=== PATIENT | male | born 2000 | race Caucasian/White ===

== ENCOUNTER 2022-09-22 13:11 | Inpatient (IN) | payer BC, MEDICAID, SELFPAY ==
[2022-09-22 13:27] VITALS: BP 135/72; BP 158/82; PULSE 104; PULSE 93; RESP 18; O2SAT 100; BMI 22.1
--- NOTE | 2022-09-22 13:32 | PC.NURSE ---
Alert and oriented. Arrived from [facility] in [place] with SI. Patient reports the last few weeks have been difficult and he is struggling to completes chores around the house and ADL`s. Reports feeling depressed and anxious and has had many intrusive thoughts about ending his life. has thought about driving his car into a pool but would not actually do it. States that he was in [facility] about 2 months ago and declined any medication. takes no medications. Reports the last few weeks have been hard because his Mom has breast cancer and his parents went on vacation last week and he felt alone. Reports parents have since returned from vacation. Denies etoh or drugs use, does smoke nicotine occasionally.
--- NOTE | 2022-09-22 13:44 | ED_ITS ---
HPI - Psych General Chief Complaint: Psychiatric Symptoms Stated Complaint: SI Time Seen by Provider: 09/22/22 13:35 Source: patient Mode of arrival: EMS Limitations: no limitations History of Present Illness HPI Narrative: Patient comes to the emergency room complaining of suicidal ideation. Patient states that he has history of bipolar depression, patient has had intrusive thoughts of driving his car into the swimming pool. Patient states that he has phobia of taking psych meds and therefore has not been taking his prescribed medications for several months. Patient complaining of severe anxiety as well. However, declining any medications due to his phobia. Patient states that although he has been having intrusive thoughts, he would not hurt himself, but intrusive thoughts are bothering him quite a bit. Related Data Allergies Allergy/AdvReac Type Severity Reaction Status Date / Time No Known Allergies Allergy Verified 09/22/22 13:42 Review of Systems Review of Systems: Constitutional : No Weight loss, No Fever, No Chills, No Night Sweats, No Fatigue, No Malaise ENT/Mouth : No Hearing loss, No Ear Pain, No Nasal Congestion, No Sinus Pain, No Hoarseness, No sore throat, No Rhinorrhea, No Swallowing Difficulty Eyes: No Eye Pain, No Swelling, No Redness, No Foreign Body, No Discharge, No Vision Changes Cardiovascular : No Chest Pain, No SOB, No Dyspnea on Exertion, No Orthopnea, No Edema, No Palpitations Respiratory : No Cough, No Sputum, No Wheezing, No Smoke Exposure, No Dyspnea Gastrointestinal : No Nausea, No Vomiting, No Diarrhea, No Constipation, No abdominal Pain, No Hematochezia, No Melena Genitourinary : no irregular bleeding, No Dysuria, No Urinary Frequency, No Hematuria, No Urinary Incontinence, No Urgency, No Flank Pain, No Urinary Flow Changes, No Hesitancy Musculoskeletal : No joint pain, No Myalgias, No Joint Swelling Skin : No Skin Lesions, No rash Neuro : No Weakness, No Numbness, No Paresthesias, No Loss of Consciousness, No Dizziness, No Headache Psych : No Anxiety/Panic, No Depression, complaining of suicidal intrusive thoughts without intention, no HI, complaining of phobia tube segments Heme/Lymph: No Bruising, No Bleeding,No Lymphadenopathy Endocrine : No Polyuria, No Polydipsia, No Temperature Intolerance [facility] Past Medical History Medical History (Updated 09/22/22 @ 13:48 by Nancy Gregg MD) Bipolar depression Physical Exam Vital Signs: Vital Signs: Last Vital Signs Pulse 93 09/22/22 13:27 Resp 18 09/22/22 13:27 BP 135/72 09/22/22 13:27 Pulse Ox 100 09/22/22 13:27 O2 Del Method Room Air 09/22/22 13:27 BMI result Body Mass Index 22.1 Const: Other: Appearance: Alert. Oriented X3. No acute distress. Eyes: Pupils equal, round and reactive to light. ENT: Pharynx normal. Neck: Normal inspection. Neck supple. No lymph nodes noted. No crepitus CVS: Normal heart rate and rhythm. Pulses normal. Normal S1 and S2 Respiratory: No respiratory distress. Breath sounds normal. No Wheezing. No rales Abdomen: Soft and nontender. No rigidity. No distention. Skin: Skin warm and dry. Normal skin color. Normal skin turgor. Extremities: No lower extremity edema. No Lacerations. No Rash Neuro: Oriented X 3. No motor deficit. No sensory deficit. Moving all extremities. No slurred speech. CN 2 through 12 grossly intact Psych: calm, cooperative, anxious, a bit teary Course Course Course Narrative: -of patient's labs are pending -patient declined Ativan due to his fobia -care team consult pending -physician observation started that 13:45 Discharge Plan Discharge Clinical Impression: Suicidal ideation Patient Disposition: Still a Patient Interventions: [place]-Suicide Risk Severity Scale Last Done: 09/22/22 13:42
[2022-09-22 14:14] LABS: MANUAL DIFF FLAG NO
[2022-09-22 14:16] LABS: Appearance Urine Clear; Color Urine Yellow; Glucose Urine UA Negative (Negative); Leukocyte Esterase Urine Negative (Negative); Nitrite Urine Negative (Negative); Specific Gravity - Urine <= 1.005 (1.005-1.025); Urine Blood Negative (Negative); Urine Ketones Negative (Negative); Urine Protein Negative (Neg-Trace)
[2022-09-22 14:17] LABS: Basophils Absolute Auto 0.1 X10*3/uL (0.0-0.2); Basophils Percent Auto 0.9 % (0-2); Eosinophils Absolute Auto 0.1 X10*3/uL (0.0-0.4); Eosinophils Percent Auto 0.8 % (0-4); Hematocrit 44.2 % (42.0-52.0); Hemoglobin 15.7 g/dl (14.0-18.0); Imm Gran Abs Auto 0.03 X10*3/uL (0.00-0.03); Imm Gran Pct Auto 0.5 % (0.0-0.4); Lymphocytes Absolute Auto 0.9 X10*3/uL (1.2-4.9); Lymphocytes Percent Auto 13.7 % (20-40); Mean Corpuscular HGB Conc 35.5 g/dl (31.0-36.0); Mean Corpuscular Hemoglobin 31.5 pg (27.0-33.0); Mean Corpuscular Volume 88.6 fL (80.0-98.0); Mean Platelet Volume 10.6 fL (9.4-12.4); Monocytes Absolute Auto 0.4 X10*3/uL (0.1-1.2); Monocytes Percent Auto 6.2 % (2-11); Neutrophils Absolute Auto 5.2 x10*3/uL (2.0-8.3); Neutrophils Percent Auto 77.9 % (45-73); Platelet Count 289 X10*3/uL (160-400); Red Blood Count 4.99 X10*6/uL (4.60-5.80); Red Cell Distribution Width 11.3 % (11.0-16.0); White Blood Count 6.6 X10*3/uL (4.8-10.8)
[2022-09-22 14:19] LABS: Bacteria Urine None Seen (None Seen); Hyaline Casts Urine 0-2 /LPF (0-2); RBC Urine 0-2 /HPF (0-2); Squamous Epithelial Cell Urine 0-2 /HPF (0-2); WBC Urine 0-5 /HPF (0-5)
--- NOTE | 2022-09-22 14:21 | MHC.CARE ---
CARE Team spoke with [facility]- Pt was assessed in the community and a bedsearch
[2022-09-22 14:43] LABS: Amphetamine Screen Urine Not Detected (Not Detect); Barbiturates, Urine Not Detected (Not Detect); Benzodiazepines Screen Urine Not Detected (Not Detect); Cannabinoid Screen Urine Not Detected (Not Detect); Cocaine Screen Urine Not Detected (Not Detect); Fentanyl, urine Not Detected (Not Detect); Opiate Screen Urine Not Detected (Not Detect); Phencyclidine Screen Urine Not Detected (Not Detect)
[2022-09-22 14:55] LABS: Alanine Aminotransferase 10 U/L (0-40); Albumin Level 4.7 g/dL (3.5-5.0); Alkaline Phosphatase 51 U/L (39-117); Anion Gap 12 (12-20); Aspartate Amino Transferase 12 U/L (5-37); Bilirubin Direct 0.2 mg/dL (0.0-0.5); Bilirubin Total 0.4 mg/dL (0.0-1.0); Blood Urea Nitrogen 8 mg/dL (9-16); Calcium 9.8 mg/dL (8.4-10.2); Carbon Dioxide 28 mmol/L (22-29); Chloride 106 mmol/L (96-108); Creatinine Clr Calc Pharmacy 134.8; Estimated Glomerular Filt Rate > 60; Ethanol < 10 mg/dL; Glucose Random 106 mg/dL (60-115); Potassium 3.8 mmol/L (3.3-5.1); Sodium 142 mmol/L (135-145); Total Protein 7.3 g/dL (6.5-8.0)
[2022-09-22 15:10] LABS: COVID-19 Test Negative (Negative); IDNOW Serial# 08D9AD1C
--- NOTE | 2022-09-22 15:43 | PC.NURSE ---
Patient weepy, signed EV, denies any pain or discomfort
--- NOTE | 2022-09-22 17:40 | PC.NURSE ---
Patient`s father called and asked if Zane would be okay for a visit. Zane when asked if parents could visit became upset, crying, stating No no no no visitors rights now. Parents aware, will call back in the morning
--- NOTE | 2022-09-22 18:13 | PC.NURSE ---
Patient stating he is a vegan- kitchen called, new tray to be sent
[2022-09-22 18:16] VITALS: BP 123/77; PULSE 57; RESP 18; TEMP 36.9; O2SAT 100
[2022-09-22 22:00] VITALS: BP 126/70; PULSE 64; RESP 17; TEMP 36.7; O2SAT 99
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
[2022-09-23 06:00] VITALS: BP 133/72; PULSE 61; RESP 16; TEMP 36.6; O2SAT 98
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
[2022-09-23] MEDS: ARIPiprazole 5 MG TABLET PO (15:54)
[2022-09-23 19:59] VITALS: BP 120/68; PULSE 59; TEMP 36.6
[2022-09-23] MEDS: Nicotine Polacrilex 2 MG GUM 4 MG BUCCAL (20:27)
[2022-09-24 08:10] VITALS: BP 122/78; PULSE 60; RESP 18; TEMP 36.3; O2SAT 99
[2022-09-24] MEDS: ARIPiprazole 5 MG TABLET PO (09:45)
[2022-09-24 18:00] VITALS: BP 120/68; PULSE 70; RESP 18; TEMP 36.7; O2SAT 97
--- NOTE | 2022-09-24 20:27 | P.PNPSI_ITS ---
Subjective Subjective Date of Service: 09/24/22 Reason For Visit: Mental Health Crisis Subjective Notes: Conditional Voluntary Interim History: Pt appears with brighter affect, non labile, less tearful. Pt reports they slept through the night. Pt denies SI. They report less intrusive thoughts of wanting to be . Pt reports they were very moved to see family day prior when they came to visit them. Per nursing, pt slept through the night. No behavioral concerns. Pt visible on the unit, social with select peers. Denies VH/AH. He is hesitant about taking both sertraline and abilify. Pt informed that he can try both and if sertraline makes him more agitated, or suspicious or paranoid to stop sertraline. Review of Systems Review of Systems Constitutional : No Weight loss, No Fever, No Chills, No Night Sweats, No Fatigue, No Malaise ENT/Mouth : No Hearing loss, No Ear Pain, No Nasal Congestion, No Sinus Pain, No Hoarseness, No sore throat, No Rhinorrhea, No Swallowing Difficulty Eyes: No Eye Pain, No Swelling, No Redness, No Foreign Body, No Discharge, No Vision Changes Cardiovascular : No Chest Pain, No SOB, No Dyspnea on Exertion, No Orthopnea, No Edema, No Palpitations Respiratory : No Cough, No Sputum, No Wheezing, No Smoke Exposure, No Dyspnea Gastrointestinal : No Nausea, No Vomiting, No Diarrhea, No Constipation, No abdominal Pain, No Hematochezia, No Melena Genitourinary : no irregular bleeding, No Dysuria, No Urinary Frequency, No Hematuria, No Urinary Incontinence, No Urgency, No Flank Pain, No Urinary Flow Changes, No Hesitancy Musculoskeletal : No joint pain, No Myalgias, No Joint Swelling Skin : No Skin Lesions, No rash Neuro : No Weakness, No Numbness, No Paresthesias, No Loss of Consciousness, No Dizziness, No Headache Psych : No Anxiety/Panic, No Depression, complaining of suicidal intrusive thoughts without intention, no HI, complaining of phobia tube segments Heme/Lymph: No Bruising, No Bleeding,No Lymphadenopathy Endocrine : No Polyuria, No Polydipsia, No Temperature Intolerance Mental Status Exam Mental Status Exam Narrative: Appearance: wearing casual clothing, hygiene is fair, in NAD Behavior: cooperative Psychomotor: no overt agitation or retardation noted Speech: clear, normal rate/rhythm, volume, spontaneous TP: mostly linear TC: feeling depressed, hopeless, unable to function Mood: depressed, lonely Affect: dysphoric at times, from tearful to calm Si: passive SI HI: none VH/AH: denies Delusions: may have some degree of suspiciousness, maybe less than before Insight/judgment: fair x 2. Memory/cog: alert, oriented x 3. Diagnostics Vital Signs (24Hr): Vital Signs - 24 hr 09/24/22 08:10 09/24/22 18:00 Temperature 97.3 F 98.1 F Pulse Rate 60 70 Respiratory Rate 18 18 Blood Pressure 122/78 120/68 Pulse Oximetry 99 97 Oxygen Delivery Method Room Air Room Air BMI result Body Mass Index 22.1 Labs 09/22/22 14:09 09/22/22 14:09 Medications Medications Current Medications Acetaminophen (Acetaminophen 325 Mg Tablet) 650 mg PO Q6H PRN PRN Reason: Headache/Pain Mild Scale (1-3) Al Hydroxide/Mg Hydroxide (Magnesium Hydrox/Alum Hydrox 30 Ml Oral.Susp) 30 ml PO Q6H PRN PRN Reason: Heartburn/Nausea Aripiprazole (Aripiprazole 5 Mg Tablet) 5 mg PO DAILY [facility] Last Admin: 09/24/22 09:45 Dose: 5 mg Hydroxyzine HCl (Hydroxyzine Hcl 25 Mg Tablet) 25 mg PO Q6H PRN PRN Reason: Anxiety Magnesium Hydroxide (Milk Of Magnesia 30 Ml Oral.Susp) 30 ml PO DAILY PRN PRN Reason: Constipation Nicotine Polacrilex (Nicotine Polacrilex 2 Mg Gum) 4 mg BUCCAL Q2H PRN PRN Reason: Nicotine Cravings Last Admin: 09/23/22 20:27 Dose: 4 mg Sertraline HCl (Sertraline Hcl 50 Mg Tablet) 50 mg PO DAILY [facility] Last Admin: 09/24/22 10:00 Dose: Not Given Trazodone HCl (Trazodone Hcl 50 Mg Tablet) 50 mg PO BEDTIME PRN PRN Reason: Insomnia Allergies Allergies Allergy/AdvReac Type Severity Reaction Status Date / Time No Known Allergies Allergy Verified 09/22/22 13:42 Assessment & Plan Assessment & Plan (1) MDD (major depressive disorder), recurrent, severe, with psychosis: Status: Acute Code(s): F33.3 - Major depressive disorder, recurrent, severe with psychotic symptoms Plan Ravin is a 22 year-old individual who prefers they/them pronouns. He has had two inpatient psychiatric admission this year for what appears to be depressed presentation with underlying psychosis (more so first admission than this). Pt presents as dysphoric at times tearful, others calm. They continues to report passive suicidal ideation and inability to function as they used to. In terms of diagnosis, I do not hear from family or pt clear hx of noe including increased energy, engaging in risky behaviors, decreased need for sleep, grandiose ideas. It appears that patient has had a significant decline in ability to function in the past 2 years with increase signs of psychosis. Within differential diagnosis, I would consider MDD with psychosis but will need to r/o schizophreniform disorder. We discussed risks, benefit and alternative treatment options. Pt agreed to start ability, continue sertraline. PLAN 1. Admit to M5, CV, 15 minutes checks for safety 2. Start abilify 5mg po daily, titrate as tolerated 3. Continue sertraline 50mg po daily 4. Aftercare planning, coordination of care with outpatient treaters and family. 09/24 continue treatment, plan to increase ability to 10mg po daily on Thursday. Consider step down to PHP. Reason for continued inpatient stay Substantial Risk for: inability to function Time Spent With Patient Time: Total time managing care of this patient today ____ minutes.
[2022-09-24] MEDS: Nicotine Polacrilex 2 MG GUM 4 MG BUCCAL (20:32)
[2022-09-25 07:00] VITALS: BMI 25.7
[2022-09-25 08:05] VITALS: BP 123/80; PULSE 61; RESP 18; TEMP 36.7; O2SAT 100
[2022-09-25] MEDS: ARIPiprazole 5 MG TABLET PO (08:40)
[2022-09-25 18:00] VITALS: BP 124/72; PULSE 64; RESP 18; TEMP 36.6; O2SAT 99
--- NOTE | 2022-09-25 19:59 | HO.PSYCHPN ---
Subjective Subjective Date of Service: 09/25/22 Reason For Visit: Mental Health Crisis Subjective Notes: Conditional Voluntary Interim History: Pt reports feeling much better. He reports less intrusive thoughts. He denies SI/HI. He reports he understands his family is not going to change but he is very happy to see them today. Pt has been visible on the unit, social with peers. No behavioral concerns. Medication Compliance: Yes Review of Systems Review of Systems Constitutional : No Weight loss, No Fever, No Chills, No Night Sweats, No Fatigue, No Malaise ENT/Mouth : No Hearing loss, No Ear Pain, No Nasal Congestion, No Sinus Pain, No Hoarseness, No sore throat, No Rhinorrhea, No Swallowing Difficulty Eyes: No Eye Pain, No Swelling, No Redness, No Foreign Body, No Discharge, No Vision Changes Cardiovascular : No Chest Pain, No SOB, No Dyspnea on Exertion, No Orthopnea, No Edema, No Palpitations Respiratory : No Cough, No Sputum, No Wheezing, No Smoke Exposure, No Dyspnea Gastrointestinal : No Nausea, No Vomiting, No Diarrhea, No Constipation, No abdominal Pain, No Hematochezia, No Melena Genitourinary : no irregular bleeding, No Dysuria, No Urinary Frequency, No Hematuria, No Urinary Incontinence, No Urgency, No Flank Pain, No Urinary Flow Changes, No Hesitancy Musculoskeletal : No joint pain, No Myalgias, No Joint Swelling Skin : No Skin Lesions, No rash Neuro : No Weakness, No Numbness, No Paresthesias, No Loss of Consciousness, No Dizziness, No Headache Psych : No Anxiety/Panic, No Depression, complaining of suicidal intrusive thoughts without intention, no HI, complaining of phobia tube segments Heme/Lymph: No Bruising, No Bleeding,No Lymphadenopathy Endocrine : No Polyuria, No Polydipsia, No Temperature Intolerance Mental Status Exam Mental Status Exam Narrative: Appearance: wearing casual clothing, hygiene is fair, in NAD Behavior: cooperative Psychomotor: no overt agitation or retardation noted Speech: clear, normal rate/rhythm, volume, spontaneous TP: mostly linear TC: feeling depressed, hopeless, unable to function Mood: depressed, lonely Affect: dysphoric at times, from tearful to calm Si: passive SI HI: none VH/AH: denies Delusions: may have some degree of suspiciousness, maybe less than before Insight/judgment: fair x 2. Memory/cog: alert, oriented x 3. Diagnostics Vital Signs (24Hr): Vital Signs - 24 hr 09/25/22 08:05 Temperature 98.1 F Pulse Rate 61 Respiratory Rate 18 Blood Pressure 123/80 Pulse Oximetry 100 Oxygen Delivery Method Room Air BMI result Body Mass Index 25.7 Labs 09/22/22 14:09 09/22/22 14:09 Medications Medications Current Medications Acetaminophen (Acetaminophen 325 Mg Tablet) 650 mg PO Q6H PRN PRN Reason: Headache/Pain Mild Scale (1-3) Al Hydroxide/Mg Hydroxide (Magnesium Hydrox/Alum Hydrox 30 Ml Oral.Susp) 30 ml PO Q6H PRN PRN Reason: Heartburn/Nausea Aripiprazole (Aripiprazole 5 Mg Tablet) 5 mg PO DAILY [facility] Last Admin: 09/25/22 08:40 Dose: 5 mg Hydroxyzine HCl (Hydroxyzine Hcl 25 Mg Tablet) 25 mg PO Q6H PRN PRN Reason: Anxiety Magnesium Hydroxide (Milk Of Magnesia 30 Ml Oral.Susp) 30 ml PO DAILY PRN PRN Reason: Constipation Nicotine Polacrilex (Nicotine Polacrilex 2 Mg Gum) 4 mg BUCCAL Q2H PRN PRN Reason: Nicotine Cravings Last Admin: 09/24/22 20:32 Dose: 4 mg Sertraline HCl (Sertraline Hcl 50 Mg Tablet) 50 mg PO DAILY [facility] Last Admin: 09/25/22 08:41 Dose: Not Given Trazodone HCl (Trazodone Hcl 50 Mg Tablet) 50 mg PO BEDTIME PRN PRN Reason: Insomnia Allergies Allergies Allergy/AdvReac Type Severity Reaction Status Date / Time No Known Allergies Allergy Verified 09/22/22 13:42 Assessment & Plan Assessment & Plan (1) MDD (major depressive disorder), recurrent, severe, with psychosis: Status: Acute Code(s): F33.3 - Major depressive disorder, recurrent, severe with psychotic symptoms Plan Ravin is a 22 year-old individual who prefers they/them pronouns. He has had two inpatient psychiatric admission this year for what appears to be depressed presentation with underlying psychosis (more so first admission than this). Pt presents as dysphoric at times tearful, others calm. They continues to report passive suicidal ideation and inability to function as they used to. In terms of diagnosis, I do not hear from family or pt clear hx of noe including increased energy, engaging in risky behaviors, decreased need for sleep, grandiose ideas. It appears that patient has had a significant decline in ability to function in the past 2 years with increase signs of psychosis. Within differential diagnosis, I would consider MDD with psychosis but will need to r/o schizophreniform disorder. We discussed risks, benefit and alternative treatment options. Pt agreed to start ability, continue sertraline. PLAN 1. Admit to M5, CV, 15 minutes checks for safety 2. Start abilify 5mg po daily, titrate as tolerated 3. Continue sertraline 50mg po daily 4. Aftercare planning, coordination of care with outpatient treaters and family. 09/24 continue treatment, plan to increase ability to 10mg po daily on Thursday. Consider step down to PHP. 09/25 continue tx. increase abilify to 10mg po daily. Reason for continued inpatient stay Substantial Risk for: inability to function Time Spent With Patient Time: Total time managing care of this patient today ____ minutes.
[2022-09-25] MEDS: Nicotine Polacrilex 2 MG GUM 4 MG BUCCAL (20:38)
[2022-09-26 06:00] VITALS: BP 122/71; PULSE 75; RESP 16; TEMP 36.3; O2SAT 98
[2022-09-26] MEDS: ARIPiprazole 5 MG TABLET PO (08:33)
--- NOTE | 2022-09-26 08:42 | HO.PSYCHPN ---
Subjective Subjective Date of Service: 09/26/22 Reason For Visit: Mental Health Crisis Subjective Notes: Conditional Voluntary Interim History: Pt continues to report feeling much better. He reports less intrusive thoughts. He denies SI/HI. He reports he understands his family is not going to change but he is very happy to see them today. Pt has been visible on the unit, social with peers. No behavioral concerns. Review of Systems Review of Systems Constitutional : No Weight loss, No Fever, No Chills, No Night Sweats, No Fatigue, No Malaise ENT/Mouth : No Hearing loss, No Ear Pain, No Nasal Congestion, No Sinus Pain, No Hoarseness, No sore throat, No Rhinorrhea, No Swallowing Difficulty Eyes: No Eye Pain, No Swelling, No Redness, No Foreign Body, No Discharge, No Vision Changes Cardiovascular : No Chest Pain, No SOB, No Dyspnea on Exertion, No Orthopnea, No Edema, No Palpitations Respiratory : No Cough, No Sputum, No Wheezing, No Smoke Exposure, No Dyspnea Gastrointestinal : No Nausea, No Vomiting, No Diarrhea, No Constipation, No abdominal Pain, No Hematochezia, No Melena Genitourinary : no irregular bleeding, No Dysuria, No Urinary Frequency, No Hematuria, No Urinary Incontinence, No Urgency, No Flank Pain, No Urinary Flow Changes, No Hesitancy Musculoskeletal : No joint pain, No Myalgias, No Joint Swelling Skin : No Skin Lesions, No rash Neuro : No Weakness, No Numbness, No Paresthesias, No Loss of Consciousness, No Dizziness, No Headache Psych : No Anxiety/Panic, No Depression, complaining of suicidal intrusive thoughts without intention, no HI, complaining of phobia tube segments Heme/Lymph: No Bruising, No Bleeding,No Lymphadenopathy Endocrine : No Polyuria, No Polydipsia, No Temperature Intolerance Mental Status Exam Mental Status Exam Narrative: Appearance: wearing casual clothing, hygiene is fair, in NAD Behavior: cooperative Psychomotor: no overt agitation or retardation noted Speech: clear, normal rate/rhythm, volume, spontaneous TP: mostly linear TC: feeling depressed, hopeless, unable to function Mood: depressed, lonely Affect: dysphoric at times, from tearful to calm Si: passive SI HI: none VH/AH: denies Delusions: may have some degree of suspiciousness, maybe less than before Insight/judgment: fair x 2. Memory/cog: alert, oriented x 3. Diagnostics Vital Signs (24Hr): Vital Signs - 24 hr 09/25/22 18:00 Temperature 97.9 F Pulse Rate 64 Respiratory Rate 18 Blood Pressure 124/72 Pulse Oximetry 99 Oxygen Delivery Method Room Air BMI result Body Mass Index 25.7 Labs 09/22/22 14:09 09/22/22 14:09 Medications Medications Current Medications Acetaminophen (Acetaminophen 325 Mg Tablet) 650 mg PO Q6H PRN PRN Reason: Headache/Pain Mild Scale (1-3) Al Hydroxide/Mg Hydroxide (Magnesium Hydrox/Alum Hydrox 30 Ml Oral.Susp) 30 ml PO Q6H PRN PRN Reason: Heartburn/Nausea Aripiprazole (Aripiprazole 10 Mg Tablet) 10 mg PO DAILY [facility] Hydroxyzine HCl (Hydroxyzine Hcl 25 Mg Tablet) 25 mg PO Q6H PRN PRN Reason: Anxiety Magnesium Hydroxide (Milk Of Magnesia 30 Ml Oral.Susp) 30 ml PO DAILY PRN PRN Reason: Constipation Nicotine Polacrilex (Nicotine Polacrilex 2 Mg Gum) 4 mg BUCCAL Q2H PRN PRN Reason: Nicotine Cravings Last Admin: 09/25/22 20:38 Dose: 4 mg Sertraline HCl (Sertraline Hcl 50 Mg Tablet) 50 mg PO DAILY [facility] Last Admin: 09/26/22 08:34 Dose: Not Given Trazodone HCl (Trazodone Hcl 50 Mg Tablet) 50 mg PO BEDTIME PRN PRN Reason: Insomnia Allergies Allergies Allergy/AdvReac Type Severity Reaction Status Date / Time No Known Allergies Allergy Verified 09/22/22 13:42 Assessment & Plan Assessment & Plan (1) MDD (major depressive disorder), recurrent, severe, with psychosis: Status: Acute Code(s): F33.3 - Major depressive disorder, recurrent, severe with psychotic symptoms Plan Ravin is a 22 year-old individual who prefers they/them pronouns. He has had two inpatient psychiatric admission this year for what appears to be depressed presentation with underlying psychosis (more so first admission than this). Pt presents as dysphoric at times tearful, others calm. They continues to report passive suicidal ideation and inability to function as they used to. In terms of diagnosis, I do not hear from family or pt clear hx of noe including increased energy, engaging in risky behaviors, decreased need for sleep, grandiose ideas. It appears that patient has had a significant decline in ability to function in the past 2 years with increase signs of psychosis. Within differential diagnosis, I would consider MDD with psychosis but will need to r/o schizophreniform disorder. We discussed risks, benefit and alternative treatment options. Pt agreed to start ability, continue sertraline. PLAN 1. Admit to M5, CV, 15 minutes checks for safety 2. Start abilify 5mg po daily, titrate as tolerated 3. Continue sertraline 50mg po daily 4. Aftercare planning, coordination of care with outpatient treaters and family. 09/24 continue treatment, plan to increase ability to 10mg po daily on Thursday. Consider step down to PHP. 09/25 continue tx. increase abilify to 10mg po daily. 09/26 continue tx. Reason for continued inpatient stay Substantial Risk for: harm to self and inability to function Time Spent With Patient Time: Total time managing care of this patient today ____ minutes.
[2022-09-26] MEDS: Nicotine Polacrilex 2 MG GUM 4 MG BUCCAL (14:51)
[2022-09-26 19:45] VITALS: BP 137/70; PULSE 77; RESP 18; TEMP 36.9; O2SAT 99
[2022-09-27 08:20] VITALS: BP 147/70; PULSE 63; RESP 18; TEMP 36.8; O2SAT 100
[2022-09-27] MEDS: ARIPiprazole 10 MG TABLET PO (08:31)
--- NOTE | 2022-09-27 13:44 | P.HPPSO_ITS ---
HPI Chief Complaint: Mental Health Crisis HPI Past Psychiatric History: Inpatient: [facility] 07/[facility]22 OP: [facility] Elisa Jones [phone] [facility] Medical History (Updated 09/24/22 @ 08:30 by Mariana Healy) Bipolar depression Family History: None Social History: Lives with parents and brother. Graduated BA environmental Studies. Currently not working. Trauma History: did not disclose. Diagnostics Vital Signs (24Hr): Vital Signs - 24 hr 09/26/22 19:45 09/27/22 08:20 Temperature 98.4 F 98.2 F Pulse Rate 77 63 Respiratory Rate 18 18 Blood Pressure 137/70 147/70 H Pulse Oximetry 99 100 Oxygen Delivery Method Room Air Room Air BMI result Body Mass Index 25.7 Labs 09/22/22 14:09 09/22/22 14:09 Meds/Allergies Meds Home Medications Medication Instructions Recorded Confirmed Type sertraline 50 mg tablet 50 mg PO DAILY 09/22/22 09/22/22 History Allergies Allergies Allergy/AdvReac Type Severity Reaction Status Date / Time No Known Allergies Allergy Verified 09/22/22 13:42 Assessment & Plan Time Spent With Patient Time: Total time managing care of this patient today ____ minutes.
[2022-09-27 16:32] VITALS: BP 126/71; PULSE 97; TEMP 36.2; O2SAT 100
[2022-09-27] MEDS: Nicotine Polacrilex 2 MG GUM 4 MG BUCCAL (20:13)
--- NOTE | 2022-09-27 21:44 | PC.NURSE ---
Patient requested Melatonin 6 mg po at hs as a prn for sleep; Dr. Granados, on-call doctor wrote the order.
[2022-09-27] MEDS: Melatonin 3 MG TABLET 6 MG PO (21:49)
--- NOTE | 2022-09-28 00:47 | P.PNPSI_ITS ---
Subjective Subjective Date of Service: 09/27/22 Reason For Visit: Mental Health Crisis Interim History: pt seen chart reviewed educated regarding dx tx options cbt discussed php Medication Compliance: Yes Mental Status Exam Mental Status Exam Narrative: Appearance: wearing casual clothing, hygiene is fair, in NAD Behavior: cooperative Psychomotor: no overt agitation or retardation noted Speech: clear, normal rate/rhythm, volume, spontaneous TP: mostly linear TC: feeling depressed, hopeless,some improvement Mood: depressed, lonely Affect: dysphoric at times, from tearful to calm Si: passive SI HI: none VH/AH: denies Delusions: denies Insight/judgment: fair x 2. Memory/cog: alert, oriented x 3. Diagnostics Vital Signs (24Hr): Vital Signs - 24 hr 09/27/22 08:20 09/27/22 16:32 Temperature 98.2 F 97.2 F Pulse Rate 63 97 Respiratory Rate 18 Blood Pressure 147/70 H 126/71 Pulse Oximetry 100 100 Oxygen Delivery Method Room Air Room Air BMI result Body Mass Index 25.7 Labs 09/22/22 14:09 09/22/22 14:09 Medications Medications Current Medications Acetaminophen (Acetaminophen 325 Mg Tablet) 650 mg PO Q6H PRN PRN Reason: Headache/Pain Mild Scale (1-3) Al Hydroxide/Mg Hydroxide (Magnesium Hydrox/Alum Hydrox 30 Ml Oral.Susp) 30 ml PO Q6H PRN PRN Reason: Heartburn/Nausea Aripiprazole (Aripiprazole 10 Mg Tablet) 10 mg PO DAILY [facility] Last Admin: 09/27/22 08:31 Dose: 10 mg Hydroxyzine HCl (Hydroxyzine Hcl 25 Mg Tablet) 25 mg PO Q6H PRN PRN Reason: Anxiety Magnesium Hydroxide (Milk Of Magnesia 30 Ml Oral.Susp) 30 ml PO DAILY PRN PRN Reason: Constipation Melatonin (Melatonin 3 Mg Tablet) 6 mg PO BEDTIME PRN PRN Reason: Insomnia Last Admin: 09/27/22 21:49 Dose: 6 mg Nicotine Polacrilex (Nicotine Polacrilex 2 Mg Gum) 4 mg BUCCAL Q2H PRN PRN Reason: Nicotine Cravings Last Admin: 09/27/22 20:13 Dose: 4 mg Trazodone HCl (Trazodone Hcl 50 Mg Tablet) 50 mg PO BEDTIME PRN PRN Reason: Insomnia Allergies Allergies Allergy/AdvReac Type Severity Reaction Status Date / Time No Known Allergies Allergy Verified 09/22/22 13:42 Assessment & Plan Assessment & Plan (1) MDD (major depressive disorder), recurrent, severe, with psychosis: Status: Acute Code(s): F33.3 - Major depressive disorder, recurrent, severe with psychotic symptoms Plan Ravin is a 22 year-old individual who prefers they/them pronouns. He has had two inpatient psychiatric admission this year for what appears to be depressed presentation with underlying psychosis (more so first admission than this). Pt presents as dysphoric at times tearful, others calm. They continues to report passive suicidal ideation and inability to function as they used to. In terms of diagnosis, I do not hear from family or pt clear hx of noe including increased energy, engaging in risky behaviors, decreased need for sleep, grandiose ideas. It appears that patient has had a significant decline in ability to function in the past 2 years with increase signs of psychosis. Within differential diagnos is, I would consider MDD with psychosis but will need to r/o schizophreniform disorder. We discussed risks, benefit and alternative treatment options. Pt agreed to start ability, continue sertraline. PLAN 1. Admit to M5, CV, 15 minutes checks for safety 2. Start abilify 5mg po daily, titrate as tolerated 3. Continue sertraline 50mg po daily 4. Aftercare planning, coordination of care with outpatient treaters and family. 09/24 continue treatment, plan to increase ability to 10mg po daily on Thursday. Consider step down to PHP. 09/25 continue tx. increase abilify to 10mg po daily. 09/26 continue tx. 09/27/22 cont abilify consider lithium depakote Patient educated on: diagnosis and therapeutic strategies Informed Consent: understands Reason for continued inpatient stay Substantial Risk for: harm to self Time Spent With Patient Time: Total time managing care of this patient today ____ minutes.
[2022-09-28 08:10] VITALS: BP 146/69; PULSE 86; RESP 18; TEMP 36.1; O2SAT 100
[2022-09-28] MEDS: ARIPiprazole 10 MG TABLET PO (08:16)
[2022-09-28 20:00] VITALS: BP 121/75; PULSE 71; RESP 18; TEMP 36.7; O2SAT 98
[2022-09-28] MEDS: Melatonin 3 MG TABLET 6 MG PO (21:17)
--- NOTE | 2022-09-29 00:14 | HO.PSYCHPN ---
Subjective Subjective Date of Service: 09/28/22 Reason For Visit: Mental Health Crisis Interim History: Patient feels significantly improved more future focused much less anxious feels more connected with his parents. No complaints of side effects more hopeful Medication Compliance: Yes Review of Systems Acute medical concerns: No Mental Status Exam Mental Status Exam Narrative: Appearance: wearing casual clothing, hygiene is fair, in NAD Behavior: cooperative Psychomotor: no overt agitation or retardation noted Speech: clear, normal rate/rhythm, volume, spontaneous TP: mostly linear TC: feeling more hopeful better perspective Mood: Feeling okay Affect: Appropriate full Si: No SI HI: none VH/AH: denies Delusions: denies Insight/judgment: fair x 2. Memory/cog: alert, oriented x 3. Diagnostics Vital Signs (24Hr): Vital Signs - 24 hr 09/28/22 08:10 09/28/22 20:00 Temperature 96.9 F 98.0 F Pulse Rate 86 71 Respiratory Rate 18 18 Blood Pressure 146/69 H 121/75 Pulse Oximetry 100 98 Oxygen Delivery Method Room Air Room Air BMI result Body Mass Index 25.7 Labs 09/22/22 14:09 09/22/22 14:09 Medications Medications Current Medications Acetaminophen (Acetaminophen 325 Mg Tablet) 650 mg PO Q6H PRN PRN Reason: Headache/Pain Mild Scale (1-3) Al Hydroxide/Mg Hydroxide (Magnesium Hydrox/Alum Hydrox 30 Ml Oral.Susp) 30 ml PO Q6H PRN PRN Reason: Heartburn/Nausea Aripiprazole (Aripiprazole 10 Mg Tablet) 10 mg PO DAILY [facility] Last Admin: 09/28/22 08:16 Dose: 10 mg Hydroxyzine HCl (Hydroxyzine Hcl 25 Mg Tablet) 25 mg PO Q6H PRN PRN Reason: Anxiety Magnesium Hydroxide (Milk Of Magnesia 30 Ml Oral.Susp) 30 ml PO DAILY PRN PRN Reason: Constipation Melatonin (Melatonin 3 Mg Tablet) 6 mg PO BEDTIME PRN PRN Reason: Insomnia Last Admin: 09/28/22 21:17 Dose: 6 mg Nicotine Polacrilex (Nicotine Polacrilex 2 Mg Gum) 4 mg BUCCAL Q2H PRN PRN Reason: Nicotine Cravings Last Admin: 09/27/22 20:13 Dose: 4 mg Trazodone HCl (Trazodone Hcl 50 Mg Tablet) 50 mg PO BEDTIME PRN PRN Reason: Insomnia Allergies Allergies Allergy/AdvReac Type Severity Reaction Status Date / Time No Known Allergies Allergy Verified 09/22/22 13:42 Assessment & Plan Assessment & Plan (1) MDD (major depressive disorder), recurrent, severe, with psychosis: Status: Acute Code(s): F33.3 - Major depressive disorder, recurrent, severe with psychotic symptoms Plan Ravin is a 22 year-old individual who prefers they/them pronouns. He has had two inpatient psychiatric admission this year for what appears to be depressed presentation with underlying psychosis (more so first admission than this). Pt presents as dysphoric at times tearful, others calm. They continues to report passive suicidal ideation and inability to function as they used to. In terms of diagnosis, I do not hear from family or pt clear hx of noe including increased energy, engaging in risky behaviors, decreased need for sleep, grandiose ideas. It appears that patient has had a significant decline in ability to function in the past 2 years with increase signs of psychosis. Within differential diagnosis, I would consider MDD with psychosis but will need to r/o schizophreniform disorder. We discussed risks, benefit and alternative treatment options. Pt agreed to start ability, continue sertraline. PLAN 1. Admit to M5, CV, 15 minutes checks for safety 2. Start abilify 5mg po daily, titrate as tolerated 3. Continue sertraline 50mg po daily 4. Aftercare planning, coordination of care with outpatient treaters and family. 09/24 continue treatment, plan to increase ability to 10mg po daily on Thursday. Consider step down to PHP. 09/25 continue tx. increase abilify to 10mg po daily. 09/26 continue tx. 09/27/22 cont abilify consider lithium depakote 09/28/2022 Patient seems improved continue plan of care discharge planning Reason for continued inpatient stay Substantial Risk for: harm to self and rapid decompensation Time Spent With Patient Time: Total time managing care of this patient today ____ minutes.
[2022-09-29 08:10] VITALS: BP 125/69; PULSE 69; RESP 18; TEMP 36.8; O2SAT 100
[2022-09-29] MEDS: ARIPiprazole 10 MG TABLET PO (08:48)
--- NOTE | 2022-09-29 10:14 | HO.PSYCHPN ---
Subjective Subjective Date of Service: 09/29/22 Reason For Visit: Mental Health Crisis Interim History: met with patient; discussed with team; reviewed progress notes Diagnostics Vital Signs (24Hr): Vital Signs - 24 hr 09/28/22 20:00 Temperature 98.0 F Pulse Rate 71 Respiratory Rate 18 Blood Pressure 121/75 Pulse Oximetry 98 Oxygen Delivery Method Room Air BMI result Body Mass Index 25.7 Labs 09/22/22 14:09 09/22/22 14:09 Medications Medications Current Medications Acetaminophen (Acetaminophen 325 Mg Tablet) 650 mg PO Q6H PRN PRN Reason: Headache/Pain Mild Scale (1-3) Al Hydroxide/Mg Hydroxide (Magnesium Hydrox/Alum Hydrox 30 Ml Oral.Susp) 30 ml PO Q6H PRN PRN Reason: Heartburn/Nausea Aripiprazole (Aripiprazole 10 Mg Tablet) 10 mg PO DAILY [facility] Last Admin: 09/29/22 08:48 Dose: 10 mg Hydroxyzine HCl (Hydroxyzine Hcl 25 Mg Tablet) 25 mg PO Q6H PRN PRN Reason: Anxiety Magnesium Hydroxide (Milk Of Magnesia 30 Ml Oral.Susp) 30 ml PO DAILY PRN PRN Reason: Constipation Melatonin (Melatonin 3 Mg Tablet) 6 mg PO BEDTIME PRN PRN Reason: Insomnia Last Admin: 09/28/22 21:17 Dose: 6 mg Nicotine Polacrilex (Nicotine Polacrilex 2 Mg Gum) 4 mg BUCCAL Q2H PRN PRN Reason: Nicotine Cravings Last Admin: 09/27/22 20:13 Dose: 4 mg Trazodone HCl (Trazodone Hcl 50 Mg Tablet) 50 mg PO BEDTIME PRN PRN Reason: Insomnia Allergies Allergies Allergy/AdvReac Type Severity Reaction Status Date / Time No Known Allergies Allergy Verified 09/22/22 13:42 Assessment & Plan Assessment & Plan (1) MDD (major depressive disorder), recurrent, severe, with psychosis: Status: Acute Code(s): F33.3 - Major depressive disorder, recurrent, severe with psychotic symptoms Plan Ravin is a 22 year-old individual who prefers they/them pronouns. He has had two inpatient psychiatric admission this year for what appears to be depressed presentation with underlying psychosis (more so first admission than this). Pt presents as dysphoric at times tearful, others calm. They continues to report passive suicidal ideation and inability to function as they used to. In terms of diagnosis, I do not hear from family or pt clear hx of noe including increased energy, engaging in risky behaviors, decreased need for sleep, grandiose ideas. It appears that patient has had a significant decline in ability to function in the past 2 years with increase signs of psychosis. Within differential diagnosis, I would consider MDD with psychosis but will need to r/o schizophreniform disorder. We discussed risks, benefit and alternative treatment options. Pt agreed to start ability, continue sertraline. PLAN 1. Admit to M5, CV, 15 minutes checks for safety 2. Start abilify 5mg po daily, titrate as tolerated 3. Continue sertraline 50mg po daily 4. Aftercare planning, coordination of care with outpatient treaters and family. 09/24 continue treatment, plan to increase ability to 10mg po daily on Thursday. Consider step down to PHP. 09/25 continue tx. increase abilify to 10mg po daily. 09/26 continue tx. 09/27/22 cont abilify consider lithium depakote 09/28/2022 Patient seems improved continue plan of care discharge planning Time Spent With Patient Time: Total time managing care of this patient today ____ minutes.
--- NOTE | 2022-09-29 10:16 | HO.PSYCHPN ---
Subjective Subjective Date of Service: 09/29/22 Reason For Visit: Mental Health Crisis Interim History: met with patient; discussed with team; reviewed progress notes Patient reports doing much better. Says mood is good, anxiety and depression resolved. Denies any SI at all. Patient discussed history with group underwriter and some of the things that led up to his recent admission. Patient is grateful for help received on the unit; Feels ready for discharge this time and his 3 days up tomorrow. Process Camera Operator inquired about patient's concerns about his family, on admission (said they were drinking bleach) and patient says he is not thinking about that very much, saying he is taking care himself and knows they will get the help they need if they want it. Patient says Abilify has been very helpful and will continue taking it. Discussed medication and patient stop taking Zoloft in July saying it was making him a little restless... Manic. Mental Status Exam Mental Status Exam Narrative: Appearance: wearing casual clothing, hygiene is fair, in NAD Behavior: cooperative Psychomotor: no overt agitation or retardation noted Speech: clear, normal rate/rhythm, volume, spontaneous TP: linear, goal directed TC: On feeling better; treatment; going home Mood: Feeling better Affect: Appropriate, congruent Si: No SI HI: none VH/AH: denies Delusions: denies Insight/judgment: fair Diagnostics Vital Signs (24Hr): Vital Signs - 24 hr 09/28/22 20:00 Temperature 98.0 F Pulse Rate 71 Respiratory Rate 18 Blood Pressure 121/75 Pulse Oximetry 98 Oxygen Delivery Method Room Air BMI result Body Mass Index 25.7 Labs 09/22/22 14:09 09/22/22 14:09 Medications Medications Current Medications Acetaminophen (Acetaminophen 325 Mg Tablet) 650 mg PO Q6H PRN PRN Reason: Headache/Pain Mild Scale (1-3) Al Hydroxide/Mg Hydroxide (Magnesium Hydrox/Alum Hydrox 30 Ml Oral.Susp) 30 ml PO Q6H PRN PRN Reason: Heartburn/Nausea Aripiprazole (Aripiprazole 10 Mg Tablet) 10 mg PO DAILY [facility] Last Admin: 09/29/22 08:48 Dose: 10 mg Hydroxyzine HCl (Hydroxyzine Hcl 25 Mg Tablet) 25 mg PO Q6H PRN PRN Reason: Anxiety Magnesium Hydroxide (Milk Of Magnesia 30 Ml Oral.Susp) 30 ml PO DAILY PRN PRN Reason: Constipation Melatonin (Melatonin 3 Mg Tablet) 6 mg PO BEDTIME PRN PRN Reason: Insomnia Last Admin: 09/28/22 21:17 Dose: 6 mg Nicotine Polacrilex (Nicotine Polacrilex 2 Mg Gum) 4 mg BUCCAL Q2H PRN PRN Reason: Nicotine Cravings Last Admin: 09/27/22 20:13 Dose: 4 mg Trazodone HCl (Trazodone Hcl 50 Mg Tablet) 50 mg PO BEDTIME PRN PRN Reason: Insomnia Allergies Allergies Allergy/AdvReac Type Severity Reaction Status Date / Time No Known Allergies Allergy Verified 09/22/22 13:42 Assessment & Plan Assessment & Plan (1) MDD (major depressive disorder), recurrent, severe, with psychosis: Status: Acute Code(s): F33.3 - Major depressive disorder, recurrent, severe with psychotic symptoms Assessment and Plan: r/o schizoaffective Plan Ravin is a 22 year-old individual who prefers they/them pronouns. He has had two inpatient psychiatric admission this year for what appears to be depressed presentation with underlying psychosis (more so first admission than this). Pt presents as dysphoric at times tearful, others calm. They continues to report passive suicidal ideation and inability to function as they used to. In terms of diagnosis, I do not hear from family or pt clear hx of noe including increased energy, engaging in risky behaviors, decreased need for sleep, grandiose ideas. It appears that patient has had a significant decline in ability to function in the past 2 years with increase signs of psychosis. Within differential diagnosis, I would consider MDD with psychosis but will need to r/o schizophreniform disorder. We discussed risks, benefit and alternative treatment options. Pt agreed to start ability, continue sertraline. PLAN Three day notice Q 15 minute checks Continue Abilify 10 mg daily Discontinued [facility] Hospital course 09/24 continue treatment, plan to increase ability to 10mg po daily on Thursday. Consider step down to PHP. 09/25 continue tx. increase abilify to 10mg po daily. 09/26 continue tx. 09/27/22 cont abilify consider lithium depakote 09/29 patient reports he is feeling much better, stable, no SI, anxiety and depression resolved. Patient feels ready to go home. His 3 day is due tomorrow. He is future oriented and will return to his outpatient. Patient is not in imminent risk for harm to self or others and is appropriate to continue treatment in the community. Request for discharge honored Patient educated on: diagnosis and medication risk/benefits Informed Consent: understands Reason for continued inpatient stay Substantial Risk for: stable for discharge Time Spent With Patient Time: Total time managing care of this patient today ____ minutes.
--- NOTE | 2022-09-29 17:26 | PM.PSYDC ---
DS: Providers Provider Date of Service: 09/30/22 Date of admission: 09/22/22 21:04 Date of discharge: 09/30/22 Primary care physician: Shakir Pagan MD Attending physician on admission: Mariana Healy Attending physician on discharge: Mathieu Womack DS: Diagnosis Discharge Diagnosis (1) MDD (major depressive disorder), recurrent, severe, with psychosis: Status: Acute DS: Medications Discharge Medications Home Medications: Previous Rx's Medication Instructions Recorded aripiprazole 10 mg tablet 10 mg PO DAILY 30 days #30 tabs 09/29/22 melatonin 5 mg tablet 5 mg PO BEDTIME PRN sleep 30 days 09/29/22 #30 tabs nicotine (polacrilex) 2 mg gum 4 mg buccal Q2H PRN Nicotine 09/29/22 Cravings 30 days #100 ea Mental Status Exam Mental Status Exam Narrative: Appearance: wearing casual clothing, hygiene is fair, in NAD Behavior: cooperative Psychomotor: no overt agitation or retardation noted Speech: clear, normal rate/rhythm, volume, spontaneous TP: linear, goal directed TC: On feeling better; treatment; going home Mood: Feeling better Affect: Appropriate, congruent Si: No SI HI: none VH/AH: denies Delusions: denies Insight/judgment: fair DS: Summary Hospital Course Hospital Course: HPI: Ravin is a 22 year-old individual who prefers they/them pronouns. He has had two inpatient psychiatric admission this year for what appears to be depressed presentation with underlying psychosis (more so first admission than this). Pt presents as dysphoric at times tearful, others calm. They continues to report passive suicidal ideation and inability to function as they used to. In terms of diagnosis, I do not hear from family or pt clear hx of noe including increased energy, engaging in risky behaviors, decreased need for sleep, grandiose ideas. It appears that patient has had a significant decline in ability to function in the past 2 years with increase signs of psychosis. Within differential diagnosis, I would consider MDD with psychosis but will need to r/o schizophreniform disorder. We discussed risks, benefit and alternative treatment options. Pt agreed to start ability, continue sertraline. Hospital course Patient was started on Abilify which was titrated to 10 mg to good effect. He had stop taking Zoloft in July; it was briefly restarted here but then discontinued as patient reported some feelings of neo from it. With medication and milieu therapy patient's depression and anxiety abated; SI fully resolved. Patient was engaged in treatment, appropriate with peers and staff and remained in good behavioral and pulse control. His mood was much improved any placed a 3 day notice wanting to go home. There is some debate about his diagnosis but this point remains MDD with psychosis with schizoaffective/schizophreniform as a rule out. Patient has outpatient providers already established in the community. He is returning home where he lives with his parents and his brother. His 3 day notice came to. He was not in imminent risk for harm to self or others and request for discharge honored. Time spent discussing smoking cessation with patient: 3 to 10 minutes Status at Discharge Functional status at discharge: independent ambulation Overall status at discharge: patient is back to baseline Time Spent with Patient Time attestation: Total time managing care of this patient today ____ minutes. Time spent: Less than 30 minutes Discharge Plan Discharge Anticipated Discharge Date/Time: 09/29/22 11:30 Patient Disposition: Home, Self-Care Discharge Diagnosis: MDD, recurrent, severe with psychotic features (r/o schizoaffective Ref[place]: [facility] [place] Lissette Jones Clinician [Other] - 10/06/22 11:00 am (Reach out to Lissette regarding seeing her twice a week. ) [facility] [Other] - 1 Week (Thursday to Thursday 10:00 am- 5:00pm) [employer] [facility] [employer] [Other] - 1 Week [facility] [place] Psychiatry Zonia Egan [Other] - 10/28/22 9:00 am Shakir Pagan MD [Primary Care Provider] - 1 Week (PT.HAS AN APPOINTMENT ALREADY ON OCTOBER 07 BUT OFFICE WILL CALL PATIENT TO CONFIRM.) Discharge Medications: New nicotine (polacrilex) 2 mg Gum 4 mg buccal Q2H PRN (Reason: Nicotine Cravings) 30 Days Qty: 100 1RF aripiprazole 10 mg Tablet 10 mg PO DAILY 30 Days Qty: 30 1RF melatonin 5 mg tablet 5 mg PO BEDTIME PRN (Reason: sleep) 30 Days Qty: 30 0RF Discontinued sertraline 50 mg tablet 50 mg PO DAILY Discharge Orders: Discharge Order (Routine); Ordered 09/30/22 Ordered By: Mathieu Womack Diet: Regular diet Activity on Discharge: As tolerated Stand Alone Forms: Patient Portal Discharge page, Community Support Care Plan Goals: Maintain mood and safe behaviors Take medications as prescribed Practice coping skills Continue with outpatient providers and reach out to them as needed Health Concerns: Mood stability and behaviors Plan of Treatment: Follow up with your PCP, psychiatric provider and other outpatient providers regarding above concerns Take medications as prescribed Assessment: Risk assessment at time of discharge:? Patient was interviewed prior to discharge and found to be fully oriented and without any SI or HI. Patient has insight and demonstrates good judgment in terms of wanting to pursue treatment. Patient is not in imminent risk of harm to self or others and has a safety plan that includes presenting to the closest ER or calling 911 if feeling unsafe.? Patient has been observed closely by nursing and unit staff throughout admission; patient has not engaged in any behaviors that suggest dangerousness to self or others and has demonstrated appropriate behaviors and impulse control Discharge Date/Time: 09/30/22 11:29
[2022-09-29] MEDS: Nicotine Polacrilex 2 MG GUM 4 MG BUCCAL (18:55)
[2022-09-29 19:21] VITALS: BP 127/69; PULSE 78; TEMP 36.7
[2022-09-29] MEDS: Melatonin 3 MG TABLET 6 MG PO (20:36)
[2022-09-30] MEDS: ARIPiprazole 10 MG TABLET PO (08:36)
[2022-09-30 09:34] VITALS: BP 136/76; PULSE 92; RESP 18; O2SAT 100
== END 2022-09-30 11:29 | disposition home or self-care (01) | DRG 751 ==
LOC: HO.ED 14:39 → HO.PM5 21:13
PROVIDERS: Admitting Provider Psychiatry & Neurology Psychiatry; Emergency Provider Emergency Medicine; PCP Pediatrics; Visit Provider Psychiatry & Neurology Psychiatry
DX: F33.3 Major depressive disorder, recurrent, severe with psychotic symptoms (principal); R45.851 Suicidal ideations; F17.210 Nicotine dependence, cigarettes, uncomplicated; Z20.822 Contact with and (suspected) exposure to COVID-19; Z71.6 Tobacco abuse counseling; Z79.899 Other long term (current) drug therapy
CPT/HCPCS: 36415; 80048; 80076; 80307; 81001; 85025; 87635; 99285

== ENCOUNTER → 2022-09-22 21:04 | Outpatient (BNV) | payer BC, SELFPAY | PROVIDERS: Admitting Provider Psychiatry & Neurology Psychiatry; Emergency Provider Emergency Medicine; PCP Pediatrics; Visit Provider Social Worker | DX: F33.3 Major depressive disorder, recurrent, severe with psychotic symptoms (principal) | CPT/HCPCS: 90792; 99231; 99232; 99238 ==

== ENCOUNTER → 2022-09-22 21:04 | Outpatient (BNV) | payer BC, SELFPAY | PROVIDERS: Admitting Provider Psychiatry & Neurology Psychiatry; Emergency Provider Emergency Medicine; PCP Pediatrics; Visit Provider Psychiatry & Neurology Psychiatry | DX: F33.3 Major depressive disorder, recurrent, severe with psychotic symptoms (principal) | CPT/HCPCS: 99231; 99232 ==